=== PATIENT | male | born 1995 ===

== ENCOUNTER → 2023-05-07 | Outpatient (CLI) | payer OTHER ==
[2023-05-10 01:09] LABS: CHLAMYDIA TRACHOMATIS, NAA Negative (Negative)
== END ==
LOC: LAB 16:29 → LAB SHORT 16:29
PROVIDERS: Family Medicine
DX: R35.0 Frequency of micturition (principal)
CPT/HCPCS: 87086; 87491; 87591

== ENCOUNTER 2025-10-02 22:50 | Emergency (ER) | payer OTHER ==
[~2025-10-02] VITALS: Ht 180.3 cm; Wt 71.7 kg
[2025-10-02 23:05] VITALS: BP 167/100
[2025-10-03] MEDS ORDERED: METPHE10 PO (13:22)
[2025-10-03] MEDS ORDERED: BUSP10 PO (13:22)
[2025-10-03] MEDS ORDERED: ONDA4ODT MM (16:19)
[2025-10-03] MEDS ORDERED: Percocet 5-3251 EACH PO (16:19)
[2025-10-03] MEDS ORDERED: IBUP800 PO (16:19)
== END 2025-10-03 00:14 | disposition left against medical advice (07) ==
LOC: ER 22:50
DX: Z53.21 Procedure and treatment not carried out due to patient leaving prior to being seen by health care provider (principal)
CPT/HCPCS: 73130; A9270

== ENCOUNTER 2025-10-03 13:10 | Emergency (ER) | payer OTHER ==
[~2025-10-03] VITALS: Ht 180.3 cm; Wt 70.8 kg
[2025-10-03 13:21] VITALS: BP 139/78
[2025-10-03] MEDS ORDERED: METPHE10 PO (13:22)
[2025-10-03] MEDS ORDERED: BUSP5 PO (13:22)
[2025-10-03] MEDS ORDERED: OxyCODONE 5 mg/Acetamin 325 mg TABLET PO ONE (16:10)
[2025-10-03] MEDS ORDERED: Ketorolac Tromethamine 30mg Vial IM ONE (16:15)
[2025-10-03] MEDS ORDERED: ONDA4ODT MM (16:19)
[2025-10-03] MEDS ORDERED: Percocet 5-3251 EACH PO (16:19)
[2025-10-03] MEDS ORDERED: IBUP800 PO (16:19)
== END 2025-10-03 17:06 | disposition home or self-care (01) ==
LOC: ER 13:10
DX: S62.314A Displaced fracture of base of fourth metacarpal bone, right hand, initial encounter for closed fracture (principal); S62.131A Displaced fracture of capitate [os magnum] bone, right wrist, initial encounter for closed fracture; S62.141A Displaced fracture of body of hamate [unciform] bone, right wrist, initial encounter for closed fracture; W22.09XA Striking against other stationary object, initial encounter
CPT/HCPCS: 29105; 73200; 96372-59; 99283-25; A9270; J1885

== ENCOUNTER 2025-10-07 12:20 | Day surgery (SDC) | payer OTHER ==
[~2025-10-07] VITALS: Ht 180.3 cm; Wt 67.2 kg
[2025-10-07] VITALS (12 sets, daily range): BP systolic 110–145; BP diastolic 66–98
[~2025-10-07 12:20] MED LIST: BUSP5 PO; IBUP800 PO; METPHE10 PO; ONDA4ODT MM; Percocet 5-3251 EACH PO
[2025-10-07] MEDS ORDERED: CeFAZolin Sodium 2,000 MG in NS 100 ML IV SCH (14:05)
--- NOTE | 2025-10-07 14:09 | NUR ---
PT TO UNIT AMB WITH STEADY GAIT. PT USED RESTROOM INDEPENDENTLY. ALL BELONGINGS PLACED UNDER GURN. CAST IN PLACE OVER SURGICAL SITE. Pre-Op teaching done. Pt verbalizes understanding. History, Chart, Medications and Allergies reviewed before start of procedure. Patient States Post-Procedure ride home has been arranged WITH MOTHER.
[2025-10-07] MEDS ORDERED: FentaNYL Citrate 50 MCG/ML 2 ML Injection ONE ×2 (14:34→16:18)
[2025-10-07] MEDS ORDERED: Dexamethasone Sod Phos 10 MG/ML 1ML VIAL ONE (14:35)
[2025-10-07] MEDS ORDERED: Ondansetron HCl 2 MG / ML 2ML Vial ONE (14:35)
[2025-10-07] MEDS ORDERED: FentaNYL Citrate 50 MCG/ML 2 ML Injection IV PRN ×5 (14:35→15:50)
[2025-10-07] MEDS ORDERED: Metoclopramide HCl 5MG / ML 2ML Vial IV PRN ×2 (14:40→15:50)
[2025-10-07] MEDS ORDERED: Midazolam HCl 1MG / ML 2ML Vial IV PRN (14:40)
[2025-10-07] MEDS ORDERED: HYDROmorphone HCl/Pf 1MG SYR IV PRN ×2 (14:40→15:50)
[2025-10-07] MEDS ORDERED: Ondansetron HCl 2 MG / ML 2ML Vial IV PRN ×2 (14:40→15:50)
[2025-10-07] MEDS ORDERED: Lidocaine HCL 1% 10 ML MDV ONE (15:00)
[2025-10-07] MEDS ORDERED: Bupivacaine 0.5% Inj 10 ML Vial ONE (15:00)
[2025-10-07] MEDS ORDERED: Ketorolac Tromethamine 30mg Vial ONE (15:35)
[2025-10-07] MEDS ORDERED: Morphine Sulfate 4 MG/1 ML Injection IV PRN (15:55)
[2025-10-07] MEDS ORDERED: HYDROmorphone HCl/Pf 1MG SYR ONE (16:18)
--- NOTE | 2025-10-07 17:24 | NUR ---
PT REPORTS PAIN TOLERABLE TO A 5/10 IN THE RIGHT HAND. NO NAUSEA REPORTED. PT TOLERATING PO FLUIDS AND CRACKERS WELL. 5MG ROXICODONE PO GIVEN FOR PAIN PRIOR TO DISCHARGE. DRESSING REMAINS DRY AND IN PLACE. FINGERS ARE WARM AND PINK. Discharge instructions reviewed with patient. Patient verbalizes understanding. Copy given to patient to take home. ALL BELONGINGS RETURNED TO PT. Discharged via wheelchair to private car for ride home WITH MOTHER.
== END 2025-10-07 17:19 | disposition home or self-care (01) ==
LOC: ORSCMMR 12:20 → ORD 14:00 → ORSCMMR 17:19
PROVIDERS: Orthopaedic Surgery
PROC: 0RSS34Z Reposition Right Carpometacarpal Joint with Internal Fixation Device, Percutaneous Approach (ICD-10-PCS; principal; 2025-10-07 15:30)
DX: S62.314A Displaced fracture of base of fourth metacarpal bone, right hand, initial encounter for closed fracture (principal); S62.316A Displaced fracture of base of fifth metacarpal bone, right hand, initial encounter for closed fracture; S63.254A Unspecified dislocation of right ring finger, initial encounter; W22.09XA Striking against other stationary object, initial encounter; F41.9 Anxiety disorder, unspecified; F32.A Depression, unspecified; F17.210 Nicotine dependence, cigarettes, uncomplicated; Z79.899 Other long term (current) drug therapy
CPT/HCPCS: A9270; J0690; J1100; J1171; J1885; J2003; J2250; J2270; J2405; J2704; J3010; J7120